=== PATIENT | female | born 1950 | race African-American/Black ===

== ENCOUNTER 2024-10-15 14:53 | Observation (INO) | payer OTHER ==
[2024-10-15 15:54] VITALS: BMI 25.8
[2024-10-15 17:01] LABS: MCHC 32.6 g/dl (32.2-35.5); MEAN CELL VOLUME 91.0 fl (79.4-94.8); MEAN PLT VOLUME 9.1 fl (9.4-12.3); RDW 14.2 % (12.4-16.6)
[2024-10-15 17:22] LABS: CO2 30.0 mmol/L (21-32); GLUCOSE,RANDOM 124.0 mg/dL (74-106)
[2024-10-15 17:25] LABS: CREATININE 0.6 mg/dL (0.55-1.3); SGOT/AST 21.0 U/L (15-37); SGPT/ALT 19.0 U/L (13-61)
[2024-10-15 17:26] LABS: TOT PROT 6.9 g/dl (6.4-8.2)
[2024-10-15 17:27] LABS: ALK PHOS 74.0 U/L (45-117)
[2024-10-15] MEDS: SODIUM CHLORIDE 0.9% 500 ML INFUS.BAG IV ONE (17:29)
[2024-10-15] MEDS: PIPERACILLIN/TAZOB 4.5 GM 4.5 GM in DEXTROSE 5%-WATER 100 ML IVPB ONE (20:00)
[2024-10-15] MEDS: SODIUM CHLORIDE 0.9% 1000 ML INFUS.BAG IV ONE (20:13)
[2024-10-15] MEDS ORDERED: PIPERACILLIN/TAZOB 4.5 GM 4.5 GM/100 ML BAG IVPB ONE (20:14)
[2024-10-15] MEDS: POTASSIUM CHLORIDE ORAL LIQUID 20 MEQ/15 ML PO ONE (20:35)
[2024-10-15] MEDS: VANCOMYCIN 1,000 MG in DEXTROSE 5%-WATER - 250 ML IVPB ONE (21:29)
[2024-10-15] MEDS ORDERED: VANCOMYCIN 1 GM PREMIX (F) 1 GM/200 ML BAG ONE (21:31)
[2024-10-16] MEDS ORDERED: GABAPENTIN 100 MG CAPSULE PO SCH (00:15)
[2024-10-16] MEDS: PIPERACILLIN/TAZOB 3.375 GM 3.375 GM in DEXTROSE 5%-WATER - 50 ML IVPB SCH (02:56)
[2024-10-16] MEDS: GABAPENTIN 100 MG CAPSULE PO SCH (06:48)
[2024-10-16] MEDS: INSULIN ASPART SLIDING SCALE (NOVOLOG) 1 VIAL SQ SCH (06:49)
[2024-10-16 08:59] LABS: ABSOLUTE IMMATURE GRANULOCYTES 0.04 x10^3/uL (0.0-0.031); BASOPHILS # 0.03 x10^3/uL (0.01-0.08); EOSINOPHIL % 0.7 % (0.7-5.8); EOSINOPHILS # 0.06 x10^3/uL (0.04-0.36); MCHC 32.5 g/dl (32.2-35.5); MEAN CELL VOLUME 91.2 fl (79.4-94.8); MEAN PLT VOLUME 9.2 fl (9.4-12.3); MONOCYTE # 0.86 x10^3/uL (0.24-0.86); MONOCYTE % 9.3 % (4.7-12.5); RDW 14.6 % (12.4-16.6)
[2024-10-16] MEDS: MINERAL OIL ENEMA 133 ML ENEMA RC ONE (10:10)
[2024-10-16] MEDS: MEGESTROL ACETATE 400 MG/10 ML UNIT DOSE CUP PO SCH (10:11)
[2024-10-16] MEDS: POLYETHYLENE GLYCOL (HEALTHYLAX) 3350 17 GM PACKET PO SCH (10:11)
[2024-10-16] MEDS: ENOXAPARIN NA (PORCINE) 40 MG/0.4 ML DISP.SYRIN SQ SCH (10:11)
[2024-10-16 11:01] LABS: CO2 34 mmol/L (21-32); GLUCOSE,RANDOM 133 mg/dL (74-106)
[2024-10-16 11:04] LABS: CREATININE 0.5 mg/dL (0.55-1.3); SGOT/AST 15 U/L (15-37)
[2024-10-16 11:05] LABS: SGPT/ALT 17 U/L (13-61)
[2024-10-16 11:06] LABS: TOT PROT 6.4 g/dl (6.4-8.2)
[2024-10-16 11:07] LABS: ALK PHOS 71 U/L (45-117)
[2024-10-16] MEDS: POTASSIUM CHLORIDE ORAL LIQUID 20 MEQ/15 ML PO ONE ×2 (14:22→19:45)
[2024-10-16] MEDS: ROSUVASTATIN CA 20 MG TABLET PO SCH (21:39)
[2024-10-16] MEDS: VANCOMYCIN/WATER FOR INJ (PEG) 1,000 MG/200 ML BAG IVPB SCH (22:22)
[2024-10-17] MEDS: PIPERACILLIN/TAZOB 3.375 GM 3.375 GM in DEXTROSE 5%-WATER - 50 ML IVPB SCH ×2 (02:44→03:00)
[2024-10-17 08:58] LABS: ABSOLUTE IMMATURE GRANULOCYTES 0.05 x10^3/uL (0.0-0.031); BASOPHILS # 0.07 x10^3/uL (0.01-0.08); EOSINOPHIL % 3.0 % (0.7-5.8); EOSINOPHILS # 0.30 x10^3/uL (0.04-0.36); MCHC 32.8 g/dl (32.2-35.5); MEAN CELL VOLUME 91.5 fl (79.4-94.8); MEAN PLT VOLUME 9.2 fl (9.4-12.3); MONOCYTE # 0.85 x10^3/uL (0.24-0.86); MONOCYTE % 8.6 % (4.7-12.5); RDW 14.9 % (12.4-16.6)
[2024-10-17] MEDS: MEGESTROL ACETATE 400 MG/10 ML UNIT DOSE CUP PO SCH (09:45)
[2024-10-17 10:07] LABS: CO2 32 mmol/L (21-32); GLUCOSE,RANDOM 170 mg/dL (74-106)
[2024-10-17 10:08] LABS: SGPT/ALT 15 U/L (13-61)
[2024-10-17 10:09] LABS: TOT PROT 6.0 g/dl (6.4-8.2)
[2024-10-17 10:10] LABS: ALK PHOS 67 U/L (45-117); CREATININE 0.7 mg/dL (0.55-1.3)
[2024-10-17 10:11] LABS: SGOT/AST 13 U/L (15-37)
[2024-10-17] MEDS: MAGNESIUM 1GM/D5W - 1 GM/100 ML IVPB IVPB ONE (12:26)
[2024-10-17] MEDS: POTASSIUM CHLORIDE ORAL LIQUID 20 MEQ/15 ML PO SCH (12:26)
[2024-10-17] MEDS: INSULIN ASPART SLIDING SCALE (NOVOLOG) 1 VIAL SQ SCH (21:45)
[2024-10-17 23:42] VITALS: RESP 18
[2024-10-18 08:46] LABS: ABSOLUTE IMMATURE GRANULOCYTES 0.04 x10^3/uL (0.0-0.031); BASOPHILS # 0.05 x10^3/uL (0.01-0.08); EOSINOPHIL % 3.1 % (0.7-5.8); EOSINOPHILS # 0.31 x10^3/uL (0.04-0.36); MCHC 32.4 g/dl (32.2-35.5); MEAN CELL VOLUME 91.5 fl (79.4-94.8); MEAN PLT VOLUME 9.3 fl (9.4-12.3); MONOCYTE # 0.77 x10^3/uL (0.24-0.86); MONOCYTE % 7.6 % (4.7-12.5); RDW 14.8 % (12.4-16.6)
[2024-10-18 09:28] LABS: CO2 31.0 mmol/L (21-32); GLUCOSE,RANDOM 159.0 mg/dL (74-106)
[2024-10-18 09:29] LABS: CREATININE 0.6 mg/dL (0.55-1.3); SGOT/AST 14.0 U/L (15-37); SGPT/ALT 15.0 U/L (13-61)
[2024-10-18 09:31] LABS: TOT PROT 6.1 g/dl (6.4-8.2)
[2024-10-18 09:32] LABS: ALK PHOS 62.0 U/L (45-117)
[2024-10-18] MEDS: POTASSIUM PHOSPHATE 15 MM in SODIUM CHLORIDE 250 ML IVPB ONE (12:04)
[2024-10-18] MEDS: ACETAMINOPHEN 325 MG TABLET (FP) PO PRN (13:43)
[2024-10-18 15:22] VITALS: BP 114/59; PULSE 111; TEMP 98.4
[2024-10-18] MEDS ORDERED: ERTAPENEM SODIUM 1 GM in SODIUM CHLORIDE 50 ML IVPB SCH (18:00)
[2024-10-19] MEDS ORDERED: ERTAPENEM SODIUM 1 GM in SODIUM CHLORIDE 50 ML IVPB SCH (10:00)
== END 2024-10-18 17:08 ==
LOC: JER 14:53 → JERBED 17:38 → J8W 23:30
PROVIDERS: ADMIT Internal Medicine; ATTEND Nurse Practitioner Acute Care
PROC: 3E013VG Introduction of Insulin into Subcutaneous Tissue, Percutaneous Approach (ICD-10-PCS; principal; 2024-10-15)
PROC: 3E03329 Introduction of Other Anti-infective into Peripheral Vein, Percutaneous Approach (ICD-10-PCS; 2024-10-15)
PROC: 3E0337Z Introduction of Electrolytic and Water Balance Substance into Peripheral Vein, Percutaneous Approach (ICD-10-PCS; 2024-10-15)
PROC: 3E033NZ Introduction of Analgesics, Hypnotics, Sedatives into Peripheral Vein, Percutaneous Approach (ICD-10-PCS; 2024-10-15)
PROC: 3E03329 Introduction of Other Anti-infective into Peripheral Vein, Percutaneous Approach (ICD-10-PCS; 2024-10-15)
DX: L89.154 Pressure ulcer of sacral region, stage 4 (principal); X58.XXXA Exposure to other specified factors, initial encounter; R53.2 Functional quadriplegia; I10 Essential (primary) hypertension; E11.9 Type 2 diabetes mellitus without complications; F03.90 Unspecified dementia, unspecified severity, without behavioral disturbance, psychotic disturbance, mood disturbance, and anxiety; R63.30 Feeding difficulties, unspecified; R13.10 Dysphagia, unspecified; E46 Unspecified protein-calorie malnutrition
CPT/HCPCS: 36415; 71045-TC-FY; 74177-TC; 80053; 82962; 83036; 83735; 84100; 85025; 85027; 85651; 86140; 87040; 87070; 87081; 87205; 87637-QW; 93005; 93010; 96365; 96366; 96367; 96368; 96372; 97116-GP; 97161-GP; 99285-25; G0378; Q9967